=== PATIENT | female | born 1950 | race Caucasian/White ===

== ENCOUNTER 2020-06-12 23:33 | Emergency (ER) | payer SELFPAY ==
[2020-06-13 00:14] LABS: URINE APPEARANCE CLOUDY; URINE BILIRUBIN NEGATIVE (NEGATIVE); URINE BLOOD 250 ery/uL (NEGATIVE); URINE COLOR BLOODY; URINE GLUCOSE NEGATIVE (NEGATIVE); URINE KETONE 2+ (NEGATIVE); URINE LEUKOCYTE ESTERASE 2+ (NEGATIVE); URINE NITRATE NEGATIVE (NEGATIVE); URINE PROTEIN(semi-quant) 1+ mg/dL (NEGATIVE); URINE UROBILINOGEN NORMAL (NORMAL)
[2020-06-13 00:15] LABS: URINE WBC 31-50 /hpf (0-3)
[2020-06-13 00:37] LABS: EOS % 0.2 % (1.0-5.0); HEMATOCRIT 45.2 % (37.0-47.0); HEMOGLOBIN 14.9 g/dL (12.5-16.0); LYMPH# 1.6 (1.50-4.00); MEAN CELL VOLUME 84 fl (78-100); MEAN CORPUSCULAR HEMOGLOBIN 28 pg (27-31); MEAN CORPUSCULAR HGB CONC 33 g/dL (33-37); MEAN PLATELET VOLUME 10.8 fl (7.4-10.4); PLATELET COUNT 285 K/mm3 (130-400); RED BLOOD COUNT 5.36 M/mm3 (4.10-5.30); RED CELL DISTRIBUTION WIDTH 13.8 % (11.5-14.5)
[2020-06-13 00:40] LABS: NEU # 10.4 (1.40-6.50)
[2020-06-13 00:44] LABS: ALBUMIN 4.2 g/dL (3.4-4.8)
[2020-06-13 00:45] LABS: POTASSIUM 3.6 mmol/L (3.5-5.1)
[2020-06-13 00:46] LABS: CALCIUM 9.5 mg/dL (8.3-10.5)
[2020-06-13 00:47] LABS: TOTAL PROTEIN 8.5 g/dL (6.2-8.1)
[2020-06-13 00:49] LABS: TOTAL BILIRUBIN 0.9 mg/dL (0.2-1.2)
[2020-06-13] MEDS ORDERED: CIPRO500 M1 PO (01:11)
[2020-06-13 02:02] VITALS: BP 156/102
== END 2020-06-13 02:02 | disposition home or self-care (01) ==
LOC: ED 23:33
PROVIDERS: Family Medicine; Physician Assistant
DX: N39.0 Urinary tract infection, site not specified (principal); E86.0 Dehydration; K59.00 Constipation, unspecified
CPT/HCPCS: J0696; J7030